=== PATIENT | male | born 1965 | race Caucasian/White ===

== ENCOUNTER 2016-05-09 13:09 | Emergency (ER) ==
--- NOTE | 2016-05-09 15:13 | PROVIDER DOCUMENTATION ---
HPI-Respiratory General - General Chief Complaint: Flu Symptoms Stated Complaint: FLU SX Time Seen by Provider: 05/09/16 15:00 Source: patient Allergies/Adverse Reactions: Patient Allergies Allergy/AdvReac Type Severity Reaction Status Date / Time No Known Allergies Allergy Verified 05/09/16 13:28 Home Medications: Blood Pressure 12/07/14 - History of Present Illness-Resp Nature of Presenting Problem: 51 y/o M presents to the ED c/o cough, congestion. onset x3 days ago. hx of pneumonia. denies fever and all other symptoms. Quality of Pain: reports: aching Severity in ED: reports: mild Onset/Duration: reports: 3 days ago Timing: reports: still present Cough Quality/Degree: reports: moderate, productive cough (clear) Current Respiratory Medication Therapy: Initiated none Modifying Factors: improves with: nothing Associated Symptoms: reports: chest pain/soreness, cough, nasal congestion, nasal drainage Similar Symptoms Previously?: No Review of Systems - Adult - REVIEW OF SYSTEMS - ADULT Constitutional: reports: chills. denies: fever Ears, Nose, Mouth & Throat: reports: sinus problem. denies: ear pain, throat pain Cardiovascular: denies: chest pain, palpitations Respiratory: reports: cough (productive, clear), wheezing. denies: shortness of breath Gastrointestinal: denies: diarrhea, nausea, vomiting Genitourinary: denies: dysuria, discharge, frequency Musculoskeletal: reports: muscle aches. denies: bone pain, back pain Integumentary: denies: itching, rash Allergic/Immunologic: denies: eczema, hives Past History - Adult - PAST MEDICAL HISTORY-ADULT Review of Records: reports: Nursing Assessment Review, Medications Reviewed, Social history reviewed & non-contributory. Major Childhood Illnesses: reports: denies history Cardiovascular: reports: HTN Musculoskeletal: reports: arthritis, chronic pain Psychiatric: reports: anxiety - PRIOR SURGERIES/PROCEDURES Surgical/Procedure History: reports: other (knee surgery) - IMMUNIZATION STATUS Childhood Immunizations: See Nurse Assessment Flu Vaccine: See Nurse Assessment Physical Exam-General - PHYSICAL EXAM-ADULT Initial Vital Signs Reviewed: Yes - CONSTITUTIONAL General Appearance: alert, no apparent distress - EYES Eyes: PERRL/EOMI, pink conjunctivae - HEAD, EARS, NOSE, MOUTH & THROAT HENMT: moist mucous membranes, normal ENT inspection, TMs normal - NECK Neck: full range of motion, normal inspection - RESPIRATORY Respiratory: lungs clear, no respiratory distress, no accessory muscle use, other (upper airway noise) - CARDIOVASCULAR Cardiovascular: normal peripheral pulses, regular rate, rhythm - GASTROINTESTINAL (ABDOMEN) Abdominal Exam: normal bowel sounds, non tender, soft - SKIN Integumentary: normal color, warm/dry - NEUROLOGIC Neurologic: medical nurse II-XII nml as tested, no motor/sensory deficits - PSYCHIATRIC Psych/Mental Status: normal mood/affect, oriented x 3 Progress - XRAY 1 XRAY Study: Chest Impression: Normal Departure - Departure Time of Disposition Order: 15:43 DIAGNOSIS: Bronchitis Disposition: HOME 01 Certified Medical Emergency: Emergent Condition: Stable Additional Instructions: ED Follow Up Instructions: You have been treated by a care provider in the Emergency Department. These instructions are being provided to you so you can have an understanding of how to care for yourself upon discharge. Upon discharge from the Emergency Department, you are responsible for making arrangements for follow-up care by a physician of your choice. Take all prescribed medications as directed. Return to the Emergency Department immediately for any new or worsening symptoms. You may call the Physician Referral phone number at [phone] to obtain a list of Physicians who are taking new patients. Prescriptions: Azithromycin [Zithromax Z-Singh] 250 mg PO DIRECTED #1 pkg Referrals: Regan Gray MD [Primary Care Provider] - Instructions: Acute Bronchitis, [id number] Attestation - Scribe Verification/Attestation Scribe:: Sixto Youssef Acting as Scribe for:: Luiz Hernandez Scribe documention review:: This chart was documented by a scribe and accurately reflects the service the provider performed and the decisions made by the provider.
[2016-05-09] MEDS ORDERED: DEPO-MEDROL IM ONE (15:39)
[2016-05-09] MEDS ORDERED: DECADRON IM ONE (15:40)
--- NOTE | 2016-05-09 15:53 | Diag Imaging Result Document ---
PROCEDURE NAME: CHEST-2 VIEWS - 05/09/2016 CHEST 2 VIEWS: COMPARISON: 10/24/2015 and 04/20/2013. FINDINGS: Heart size is normal. There is a small nodular density at the lateral right lower lung which is stable, suggesting benign etiology. The small nodular density which was seen over the left lower long on the 10/24/2015 exam is not seen on this exam and likely represented artifact from nipple shadow. Otherwise, there are no acute changes identified. There is no consolidation, pleural effusion, or pneumothorax identified. There is some thoracic spondylosis noted. IMPRESSION: No evidence of acute disease.
[2016-05-09 16:06] LABS: BASO% 0.3 % (0.0-0.8); EOS# 0.19 X1000 (0.0-0.7); EOS% 1.9 % (0.0-10.0); HEMATOCRIT 48.1 % (42.0-52.0); HEMOGLOBIN 16.4 g/dL (14.0-18.0); IMM GRAN# 0.05 X1000 (0.0-0.04); IMM GRAN% 0.5 % (0.0-0.5); LYMPH# 2.92 X1000 (1.2-3.4); LYMPH% 29.8 % (20.5-51.1); MANUAL DIFF NEEDED? NO; MCH 28.8 PG (27-31); MCHC 34.1 g/dL (33-37); MCV 84.5 FL (81-99); MONO# 1.12 X1000 (0.11-0.59); MONO% 11.4 % (1.7-9.3); MPV 9.4 FL (7.4-10.4); NEUT% 56.1 % (42.2-75.2); PLT 267 X1000 (130-400); RBC 5.69 XMIL (4.7-6.1)
[2016-05-09 16:18] VITALS: BP 153/96
== END 2016-05-09 16:18 | disposition home or self-care (01) ==
LOC: P.ED 13:09
DX: J40 Bronchitis, not specified as acute or chronic (principal); R05 Cough; R09.81 Nasal congestion; R07.9 Chest pain, unspecified; R68.83 Chills (without fever); R06.2 Wheezing; M79.1 Myalgia; I10 Essential (primary) hypertension; M19.90 Unspecified osteoarthritis, unspecified site; G89.29 Other chronic pain; Z79.899 Other long term (current) drug therapy
CPT/HCPCS: 36415; 71020; 85025; 96372; J1030; J1100